=== PATIENT | male | born 1950 | race Caucasian/White ===

== ENCOUNTER 2017-04-06 19:30 | Outpatient (CLI) | payer MEDICARE, OTHER | END 2017-04-06 19:31 | disposition home or self-care (01) | LOC: SLEEPLAB 19:30 | PROVIDERS: ATTEND Internal Medicine Cardiovascular Disease | DX: G47.33 Obstructive sleep apnea (adult) (pediatric) (principal); R53.83 Other fatigue; R06.83 Snoring; E66.9 Obesity, unspecified; I10 Essential (primary) hypertension | CPT/HCPCS: 95811 ==

== ENCOUNTER 2017-04-25 12:30 | Emergency (ER) | payer MEDICARE, OTHER ==
[2017-04-25 12:59] LABS: #Basophils 0.1 thou/uL (0.0-0.2); #Eosinphils 0.2 thou/uL (0.0-0.7); #Lymphocytes 3.3 thou/uL (1.20-3.40); #Monocytes 0.8 thou/uL (0.11-0.59); #Neutrophils 4.8 thou/uL (1.40-6.50); %Basophils 1.6 % (0.0-1.0); %Eosinophils 2.5 % (0.0-10.0); %Lymphocytes 35.1 % (21.0-51.0); %Monocytes 8.7 % (0.0-10.0); Hematocrit 51.9 % (42.0-52.0); Red Blood Cell (RBC) Count 5.17 mill/uL (4.70-6.10); White Blood Cell (WBC) Count 9.2 thou/uL (4.8-10.8)
[2017-04-25 13:05] LABS: PTT 32.2 SEC (22.9-36.1); Prothrombin Time 15.1 SEC (12.0-14.7)
[2017-04-25 13:22] LABS: ALT (SGPT) 15 U/L (8-55); AST (SGOT) 18 U/L (5-34); Alkaline Phosphatase 72 U/L (40-150); Anion Gap 12 mmol/L (10-20); BUN (Urea Nitrogen) 19 mg/dL (8.4-25.7); Bilirubin, Total 0.5 mg/dL (0.2-1.2); CK (CPK) 62 U/L (30-200); Calc. Creatinine Clearance 0 mL/min (70-130); Calcium 9.4 mg/dL (7.8-10.44); Carbon Dioxide 25 mmol/L (23-31); Chloride 106 mmol/L (98-107); Estimated GFR-MDRD 77; Globulin 3.7 g/dL (2.4-3.5); Protein, Total 7.2 g/dL (5.8-8.1)
[2017-04-25 13:32] LABS: Troponin I 0.017 ng/mL (< 0.028)
--- NOTE | 2017-04-25 14:09 | ULT ---
ULTRASOUND VENOUS BILATERAL: Date: 04/25/17 HISTORY: Pain. COMPARISON: 04/10/15. FINDINGS: Real-time Chung scale and color Doppler with spectral analysis of the bilateral lower extremity venous system was performed. Bilateral common femoral, femoral, proximal portions of greater saphenous and deep femoral veins, as well as the popliteal and posterior tibial veins are interrogated. Normal flow, augmentation, and compression. No deep venous thrombosis. IMPRESSION: No deep venous thrombosis. POS: [facility]
== END 2017-04-25 16:24 | disposition home or self-care (01) ==
LOC: ERS 12:30
DX: I48.91 Unspecified atrial fibrillation (principal); E78.5 Hyperlipidemia, unspecified; I10 Essential (primary) hypertension; F17.210 Nicotine dependence, cigarettes, uncomplicated
CPT/HCPCS: 80053; 82553; 83880; 84484; 85025; 85610; 85730; 93005; 93970; 94760; 96360

== ENCOUNTER 2017-06-15 09:28 | Outpatient (CLI) | payer MEDICARE ==
--- NOTE | 2017-06-15 12:17 | CT ---
CT PULMONARY LUNG SCAN NONCONTRAST: DATE: 06/15/17. HISTORY: Screening. Tobacco abuse. FINDINGS: Lungs are hyperinflated with scattered mild emphysematous changes evident. At the lateral aspect of the right upper lobe, a 0.6 cm nodule is associated with an area of thickened interstitium. Within t he anterior aspect of the right upper lobe, a 0.3 cm subpleural nodule is evident. Old healed rib fractures are demonstrated. There is calcification in the arterial structures. Degen erative changes involve the thoracic spine. IMPRESSION: 1. Tiny subpleural right upper lobe nodules as detailed above. 2. Lung RADS category 3. Probably benign. Please consider 6-month followup low-dose CT to evaluate for stability. 3. Atherosclerosis. POS: [facility]
== END 2017-06-15 09:29 | disposition home or self-care (01) ==
LOC: CT 09:28
PROVIDERS: ATTEND Family Medicine
DX: Z12.2 Encounter for screening for malignant neoplasm of respiratory organs (principal); Z00.00 Encounter for general adult medical examination without abnormal findings; F17.210 Nicotine dependence, cigarettes, uncomplicated; I70.90 Unspecified atherosclerosis; R91.8 Other nonspecific abnormal finding of lung field; Z72.0 Tobacco use
CPT/HCPCS: G0297

== ENCOUNTER 2018-02-22 06:57 | Day surgery (SDC) | payer MEDICARE ==
[2018-02-21 12:14] VITALS: BMI 34.2
[2018-02-22 07:58] LABS: Hemoglobin 15.3 g/dL (14.0-18.0)
[2018-02-22 08:05] LABS: PTT 26.3 SEC (22.9-36.1)
[2018-02-22 08:06] LABS: Prothrombin Time 12.9 SEC (12.0-14.7)
[2018-02-22 08:18] LABS: Anion Gap 12 mmol/L (10-20); BUN (Urea Nitrogen) 25 mg/dL (8.4-25.7); Calc. Creatinine Clearance 119 mL/min (70-130); Calcium 9.2 mg/dL (7.8-10.44); Carbon Dioxide 23 mmol/L (23-31); Chloride 108 mmol/L (98-107); Estimated GFR-MDRD 77; Glucose 123 mg/dL (80-115); Sodium 139 mmol/L (136-145)
[2018-02-22] MEDS ORDERED: EPINEPHrine 1 MG/ML AMP ONE (08:51)
[2018-02-22] MEDS ORDERED: Fentanyl 100 MCG/2 ML VIAL ONE (08:55)
[2018-02-22] MEDS ORDERED: Famotidine/PF 20 mg/2ml Vial ONE (08:55)
[2018-02-22] MEDS ORDERED: PROPOFOL 40 ML ONE (08:55)
[2018-02-22] MEDS ORDERED: Midazolam HCl 2 mg/2 ml Vial ONE (08:55)
[2018-02-22] MEDS ORDERED: Lidocaine 1% PF 5 ML VIAL ONE (09:54)
[2018-02-22] MEDS ORDERED: PROPOFOL 200 MG/20 ML VIAL ONE (09:54)
[2018-02-22] MEDS ORDERED: Succinylcholine Chloride 20 MG/ML 10 ml SYRINGE FS ONE (09:54)
[2018-02-22] MEDS ORDERED: Ondansetron HCl/PF 4 MG/2 ML Vial ONE (09:54)
[2018-02-22] MEDS ORDERED: Dexamethasone 20 MG/5 ML VIAL ONE (09:54)
--- NOTE | 2018-02-22 22:34 | OP ---
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 3. Dysphonia. 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 3. Dysphonia. PROCEDURES: Microsuspension direct laryngoscopy with biopsy. SURGEON: Jim Michael M.D. ESTIMATED BLOOD LOSS: Less than 5 mL COMPLICATIONS: None. ANESTHESIA: GETA with Ravin jet ventilation tube. PROCEDURE IN DETAIL: The patient was taken to the operating room and placed supine on the table. Hu nsaker jet ventilation tube was secured in the trachea by the Anesthesia staff. The head of bed was turned 90 degrees. A shoulder roll was placed. Following this, protective head gear was placed and a tooth guard was placed in the upper teeth. Following this, the Dedo laryngoscope was used to exami ne the oral cavity and oropharynx, which was noted to be within normal limits. The laryngeal structu res were then examined. The vallecula, epiglottis, postcricoid mucosa and piriform sinuses were with in normal limits. The patient was then placed in suspension, exposing the laryngeal inlet and the tr ue vocal cords. 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 Using t he microlaryngeal forceps, biopsies were taken of the interarytenoid area and left true vocal cord ar ea. Hemostasis was obtained using an ephedrine soaked pledget. The patient tolerated the procedure well and was taken out of suspension.
[2018-02-25 15:12] LABS: Fungus Stain Final report (.)
--- NOTE | 2018-02-26 17:11 | EKG ---
Test Reason : PREOP Blood Pressure : / mmHG Vent. Rate : 077 BPM Atrial Rate : 071 BPM P-R Int : 000 ms QRS Dur : 092 ms QT Int : 396 ms P-R-T Axes : 000 035 017 degrees QTc Int : 448 ms Atrial fibrillation with premature ventricular or aberrantly conducted complexes Low voltage QRS Cannot rule out Anterior infarct , age undetermined Abnormal ECG When compared with ECG of 25-APR-2017 12:50, No significant change was found Confirmed by SCOT YOST (2) on 02/26/2018 5:11:04 PM Referred By: DANNY Confirmed By:SCOT YOST
== END 2018-02-22 11:50 | disposition home or self-care (01) ==
LOC: SDC 06:57
PROVIDERS: ATTEND Otolaryngology Plastic Surgery within the Head & Neck
PROC: 0CBS8ZX Excision of Larynx, Via Natural or Artificial Opening Endoscopic, Diagnostic (ICD-10-PCS; principal; 2018-02-22)
DX: J37.0 Chronic laryngitis (principal); J38.3 Other diseases of vocal cords; I10 Essential (primary) hypertension; I48.91 Unspecified atrial fibrillation; I73.9 Peripheral vascular disease, unspecified; F17.220 Nicotine dependence, chewing tobacco, uncomplicated; Z79.82 Long term (current) use of aspirin; Z79.899 Other long term (current) drug therapy
CPT/HCPCS: 36415; 80048; 85014; 85018; 85610; 85730; 87070; 87076; 87077; 87102; 87186; 87205; 87206; 88305; 88312; 93005; 93010; J0171; J1100; J2001; J2250; J2405; J2704; J3010; S0028

== ENCOUNTER 2018-05-31 09:14 | Outpatient (CLI) | payer MEDICARE ==
--- NOTE | 2018-05-31 11:50 | CT ---
CT CHEST WITHOUT CONTRAST: Date: 05/31/18 HISTORY: R91.8 pulmonary nodules/lesions. Low dose screening. COMPARISON: CT pulmonary lung scan dated 06/15/17. FINDINGS: Lung screening specific (Lung-RADS): Unchanged 6.0 mm nodule with adjacent interstitial scarring, ax ial image 130, series 2. 3.0 mm nodule right middle lobe, axial image 172, series 2, is similar. Within the superior segment, right lower lobe, there is a new pulmonary nodule measuring just over 4. 0 mm, axial image 141 of series 2. No other new suspicious pulmonary nodule is present. Centrilobular emphysematous changes are similar. Potentially significant incidentals (Lung-RADS Category S): None. Other incidentals: Multiple old bilateral rib fractures. No suspicious osteolytic or osteoblastic le sions. Moderate coronary artery calcifications. IMPRESSION: 1. Lung-RADS 3: Probably benign. 4.0 mm nodule superior segment right lower lobe, axial image 141 o f series 2, is new. Recommend follow-up low dose CT in 6 months to evaluate for change. 2. The previously described nodule in the right upper lobe measuring 0.6 cm is unchanged. POS: [facility]
== END 2018-05-31 09:15 | disposition home or self-care (01) ==
LOC: CT 09:14
PROVIDERS: ATTEND Family Medicine
DX: F17.210 Nicotine dependence, cigarettes, uncomplicated (principal); R91.8 Other nonspecific abnormal finding of lung field; R91.1 Solitary pulmonary nodule
CPT/HCPCS: G0297

== ENCOUNTER 2018-08-25 09:35 | Outpatient (CLI) | payer MEDICARE ==
--- NOTE | 2018-08-25 12:38 | CT ---
CTA CHEST WITH AND WITHOUT CONTRAST: HISTORY: Mass. Abnormal stress test at the doctor's office. COMPARISON: None. TECHNIQUE: Multiple contiguous axial images were obtained in a CTA chest with and without contrast. Sagittal an d coronal 3D MIP reformats were performed. FINDINGS: The heart is normal in size without focal cardiac abnormality. Atherosclerotic calcifications are se en in the aorta and coronary arteries. No aneurysmal dilatation of the vessels is seen. No hilar or mediastinal lymphadenopathy is present. There is a small calcified granuloma in the left lower lobe. No other pulmonary nodules are seen. N o pneumothorax or pleural effusion is seen. There are multiple remote healed left rib fractures. Degenerative changes are seen in the spine. Th e chest wall soft tissues are unremarkable. The visualized subdiaphragmatic structures are unremarkable. IMPRESSION: No pulmonary or chest mass identified. POS: [facility]
[2018-08-25] MEDS ORDERED: ISOVUE-370 76%-LOCM 1 ML ONE (13:38)
== END 2018-08-25 09:36 | disposition home or self-care (01) ==
LOC: BICCT 09:35
PROVIDERS: ATTEND Internal Medicine Cardiovascular Disease
DX: R22.2 Localized swelling, mass and lump, trunk (principal)
CPT/HCPCS: 71275; 82565; Q9966

== ENCOUNTER 2018-09-08 05:42 | Day surgery (SDC) | payer MEDICARE ==
[2018-09-07 13:04] VITALS: BMI 35.1
[2018-09-08 06:37] LABS: #Basophils 0.1 thou/uL (0.0-0.2); #Eosinphils 0.3 thou/uL (0.0-0.7); #Lymphocytes 3.8 thou/uL (1.20-3.40); #Monocytes 1.2 thou/uL (0.11-0.59); %Basophils 0.7 % (0.0-1.0); %Eosinophils 2.7 % (0.0-10.0); %Lymphocytes 33.5 % (21.0-51.0); %Monocytes 10.7 % (0.0-10.0); %Neutrophils 52.3 % (42.0-75.0); Hemoglobin 14.9 g/dL (14.0-18.0); Mean Corpuscular HGB CONC 35.1 g/dL (32.0-36.0); Mean Corpuscular Hemoglobin 32.6 pg (27.0-31.0); Mean Corpuscular Volume 92.9 fL (78.0-98.0); Mean Platelet Volume 8.5 fL (7.4-10.4); Platelet Count 217 thou/uL (130-400); RBC Distribution Width 12.1 % (11.5-14.5); Red Blood Cell (RBC) Count 4.58 mill/uL (4.70-6.10); White Blood Cell (WBC) Count 11.4 thou/uL (4.8-10.8)
[2018-09-08] MEDS ORDERED: Heparin 10,000 UNITS/1 ML VIAL ONE (06:43)
[2018-09-08] MEDS ORDERED: Nitroglycerin 100MG/250ML BOT 250 ML ONE (06:43)
[2018-09-08] MEDS ORDERED: Verapamil 5 MG/2 ML VIAL ONE (06:43)
[2018-09-08 06:47] LABS: PTT 26.7 SEC (22.9-36.1); Prothrombin Time 13.1 SEC (12.0-14.7)
[2018-09-08] MEDS ORDERED: Diazepam 5 MG TAB ONE (06:48)
[2018-09-08 06:57] LABS: ALT (SGPT) 17 U/L (8-55); AST (SGOT) 15 U/L (5-34); Albumin 3.8 g/dL (3.4-4.8); Alkaline Phosphatase 91 U/L (40-150); Anion Gap 13 mmol/L (10-20); BUN (Urea Nitrogen) 24 mg/dL (8.4-25.7); Bilirubin, Total 0.3 mg/dL (0.2-1.2); Calc. Creatinine Clearance 98 mL/min (70-130); Calcium 9.8 mg/dL (7.8-10.44); Carbon Dioxide 24 mmol/L (23-31); Chloride 104 mmol/L (98-107); Estimated GFR-MDRD 60; Globulin 3.4 g/dL (2.4-3.5); Glucose 138 mg/dL (80-115); Potassium 4.2 mmol/L (3.5-5.1); Protein, Total 7.2 g/dL (5.8-8.1); Sodium 137 mmol/L (136-145)
[2018-09-08] MEDS ORDERED: Midazolam HCl 2 mg/2 ml Vial ONE (07:30)
[2018-09-08] MEDS ORDERED: Fentanyl 100 MCG/2 ML VIAL ONE (07:30)
[2018-09-08] MEDS ORDERED: Iopamidol 370 76% 100 ML VIAL ONE (09:17)
== END 2018-09-08 14:04 | disposition home or self-care (01) ==
LOC: CCL 05:42
PROVIDERS: ATTEND Internal Medicine Cardiovascular Disease
PROC: 4A023N7 Measurement of Cardiac Sampling and Pressure, Left Heart, Percutaneous Approach (ICD-10-PCS; principal; 2018-09-08)
PROC: B2111ZZ Fluoroscopy of Multiple Coronary Arteries using Low Osmolar Contrast (ICD-10-PCS; 2018-09-08)
DX: I25.10 Atherosclerotic heart disease of native coronary artery without angina pectoris (principal); I48.2 Chronic atrial fibrillation; I73.9 Peripheral vascular disease, unspecified; E78.00 Pure hypercholesterolemia, unspecified; M19.90 Unspecified osteoarthritis, unspecified site; Z87.891 Personal history of nicotine dependence; Z79.01 Long term (current) use of anticoagulants; Z79.899 Other long term (current) drug therapy; Z79.82 Long term (current) use of aspirin; Z98.890 Other specified postprocedural states
CPT/HCPCS: 76942; 80053; 85025; 85610; 85730; 93458; 99152; C1769; J1644; J2250; J3010

== ENCOUNTER 2018-09-10 12:45 | Inpatient (IN) | payer MEDICARE ==
[2018-09-10 14:21] LABS: #Eosinphils 0.1 thou/uL (0.0-0.7); #Monocytes 1.3 thou/uL (0.11-0.59); #Neutrophils 11.3 thou/uL (1.40-6.50); %Basophils 0.2 % (0.0-1.0); %Eosinophils 0.6 % (0.0-10.0); %Lymphocytes 13.6 % (21.0-51.0); %Monocytes 8.8 % (0.0-10.0); %Neutrophils 76.8 % (42.0-75.0); Hemoglobin 15.1 g/dL (14.0-18.0); Mean Corpuscular HGB CONC 33.9 g/dL (32.0-36.0); Mean Corpuscular Hemoglobin 32.5 pg (27.0-31.0); Mean Corpuscular Volume 95.9 fL (78.0-98.0); Mean Platelet Volume 8.7 fL (7.4-10.4); Platelet Count 218 thou/uL (130-400); RBC Distribution Width 12.3 % (11.5-14.5); Red Blood Cell (RBC) Count 4.65 mill/uL (4.70-6.10); White Blood Cell (WBC) Count 14.8 thou/uL (4.8-10.8)
[2018-09-10 14:32] LABS: ALT (SGPT) 18 U/L (8-55); AST (SGOT) 13 U/L (5-34); Alkaline Phosphatase 101 U/L (40-150); Anion Gap 14 mmol/L (10-20); BUN (Urea Nitrogen) 19 mg/dL (8.4-25.7); Bilirubin, Total 0.3 mg/dL (0.2-1.2); Calc. Creatinine Clearance 0 mL/min (70-130); Calcium 9.6 mg/dL (7.8-10.44); Carbon Dioxide 26 mmol/L (23-31); Chloride 100 mmol/L (98-107); Estimated GFR-MDRD 65; Globulin 2.9 g/dL (2.4-3.5); Glucose 230 mg/dL (80-115); Potassium 4.4 mmol/L (3.5-5.1); Protein, Total 6.9 g/dL (5.8-8.1); Sodium 136 mmol/L (136-145)
[2018-09-10] MEDS ORDERED: diphenhydrAMINE 50 MG/ML VIAL ONE (14:38)
[2018-09-10] MEDS ORDERED: Metoclopramide HCl 10 MG/2 ML VIAL ONE (14:38)
--- NOTE | 2018-09-10 14:43 | CT ---
FCT brain noncontrast: 09/10/2018 HISTORY: 68-year-old male with headache FINDINGS: There is a small lacunar infarction involving the right caudate nucleus and adjacent upper portion of right basal ganglia. This was not present on MRI of 03/25/2014. A small, 1 cm hypodensity inferior to the left basal ganglia is consistent with a dilated Virchow-Brian in space, and should not be mistaken for an old lacunar infarction. Ventricles are normal in size and configuration for age. No acute intra-axial or extra-axial hemorrha ge. No mass effect, midline shift, or extra-axial fluid collection. Calvarium is intact. IMPRESSION: 1. Small lacunar infarction of right corpus striatum of indeterminate age. This could be subacute or old. It occurred sometime after the previous MRI of 03/25/2014. 2. No acute intracranial hemorrhage or mass effect..
[2018-09-10] MEDS ORDERED: Methocarbamol 1 GM in Sodium Chloride 0.9% 250 ML 250 ML IVPB SCH (14:45)
--- NOTE | 2018-09-10 14:48 | CT ---
FCT cervical spine noncontrast: 09/10/2018 HISTORY: 68-year-old male with cervical immobility. COMPARISON: None FINDINGS: Alignment is normal. Vertebral body heights are maintained. There are no jumped or perched facets. Mi ld disc space narrowing at C5-6. Moderate disc space narrowing at C6-7. Large bulky osteophytes protr ude into the prevertebral space at C5-6 and C6-7. Moderate right facet DJD at C7-T1 causes minimal gr celia 1 anterolisthesis of C7 on T1, causing moderate right neural foraminal stenosis. Cervical spinal canal is diffusely small in caliber on a congenital basis due to developmentally short pedicles. Nani re right facet DJD at C3-4. Moderate left facet DJD at C4-5. Uncinate process osteophytes encroach up on bilateral neural foramina causing multilevel neural foraminal stenosis of varying degrees. Large b nic hypertrophy of posterior lateral aspect of left first rib, perhaps old healed fracture deformity. IMPRESSION: Cervical spondylosis with facet osteoarthrosis at certain levels and moderate degenerative disc disea se at 2 levels. Multilevel neural foraminal stenosis and central spinal canal stenosis.
[2018-09-10] MEDS ORDERED: Ondansetron PF 4 MG/2 ML Vial ONE (16:05)
[2018-09-10] MEDS ORDERED: Morphine 2 MG/ML SYRINGE ONE ×2 (16:07→23:51)
[2018-09-10] MEDS ORDERED: Lidocaine 1% (PF) 30 ML VIAL ONE (16:52)
[2018-09-10] MEDS ORDERED: cefTRIAXone\\ROCEPHIN 2 GM VIAL ONE (17:07)
[2018-09-10 17:59] LABS: CSF Source CSF; Clarity Clear (Clear); Tube # 4
[2018-09-10 18:04] LABS: RBC Count - Manual 0 /cumm (None Seen); WBC/NonHematics Count - Manual 11 /cumm (0-5)
[2018-09-10 18:05] LABS: Color Of CSF Supernatant COLORLESS (Colorless); Tube # 2; Unspun CSF Color COLORLESS (Colorless)
[2018-09-10 18:08] LABS: CSF Source CSF; Clarity Clear (Clear); Tube # 1
[2018-09-10 18:14] LABS: RBC Count - Manual 22 /cumm (None Seen); WBC/NonHematics Count - Manual 7 /cumm (0-5)
[2018-09-10 18:18] LABS: CSF, Glucose 92 mg/dl (40-70); CSF, Protein 80 mg/dL (15-40)
[2018-09-10 18:31] LABS: Cell Count Non Hematic 91 %; Lymphocytes 9 %
[2018-09-10] MEDS ORDERED: Acetaminophen 325 MG TAB PO PRN (19:59)
[2018-09-10] MEDS ORDERED: HYDROcodone/Acetaminophen 5/325 mg Tablet PO PRN ×2 (19:59)
--- NOTE | 2018-09-10 21:00 | HP ---
CHIEF COMPLAINT: Headache. HISTORY OF PRESENT ILLNESS: This is a 68-year-old male with history of atrial fibrillation, dyslipidemia, hypertension, peripheral arterial disease, GERD, BPH , neuropathy, who presents to the emergency room with a complaint of headache. The patient and his daughter report that he had a catheterization [address] Arnett that was normal. That night, he started having stiffness in his neck and shoulders, creating a sharp shooting headache in the frontal area that has been intermittent. He has had neck pain since then. They attributed it to the catheterization; however, this continued to worsen to the point where he presented for care today. He denies any fevers or chills. Denies any nausea, vomiting, or abdominal pain. He also denies any history of chronic neck or back pain. He has noted that his voice changed 2 days ago, he has had some sinus pain and stuffy nose. He has ongoing chronic photophobia since cataract surgery years ago, that is unchanged. There have been no clear precipitating factors or relieving factors for these current symptoms. In the emergency room, the patient's presentation was concerning for meningitis. He had a temperature of 100.2 rectal, lumbar puncture that showed 7 white blood cells in tube 1, 11 white blood cells in tube 4. He received normal saline 1 L, Benadryl 25 mg IV, Reglan 10 mg IV, Robaxin 1 g IV, Zofran 4 mg IV, morphine 2 mg IV, ceftriaxone 2 g IV, vancomycin 1 g IV, and hospitalist called for admission. ALLERGIES: NO KNOWN DRUG ALLERGIES. CURRENT MEDICATIONS: Reconciled with the list that the patient provided: 1. Digoxin 0.125 mg daily. 2. Allopurinol 300 mg daily. 3. Diltiazem 360 mg daily. 4. Vitamin B12 daily. 5. Coenzyme Q10 daily. 6. Pantoprazole 40 mg daily. 7. Mobic 15 mg daily. 8. Eliquis 5 mg b.i.d. 9. Rosuvastatin 10 mg daily. 10. Gabapentin 300 mg two tablets at night. 11. Aspirin 81 mg at night. 12. Multivitamin at night. 13. Tamsulosin 0.5 mg at night. PAST MEDICAL HISTORY: 1. Atrial fibrillation, on full anticoagulation. 2. Dyslipidemia. 3. Hypertension. 4. Neuropathy. 5. GERD. 6. BPH. 7. Peripheral arterial disease, status post angioplasty in bilateral lower extremities. 8. History of ruptured lumbar disk. He denies any problems with this now. 9. Chronic photophobia s/p cataract surgery. 10. Chronic left knee pain. PAST SURGICAL HISTORY: Angioplasty in bilateral lower extremities and cataracts OU. SOCIAL HISTORY: The patient reports alcohol use monthly, quit tobacco use on . Lives with one of his daughters. He has 3 daughters who were all his surrogate decision makers and he is a full code. FAMILY HISTORY: He denies any inherited disorders. REVIEW OF SYSTEMS: Significant for voice change two days ago. Sinus pain, photophobia that is chronic. Left knee pain, he is anticipating knee replacement. Leg pain with ambulating about 50 feet. All remaining review of systems are reviewed and negative. PHYSICAL EXAMINATION: VITAL SIGNS: Blood pressure 130/85, pulse 94, respirations 24, sats 93% on room air, temperature 98.4. GENERAL: Awake, alert, responsive, in no apparent distress. Able to answer questions appropriately. HEENT: Pupils are equal and round. No scleral icterus. Oral mucosa pink and dry. NECK: Supple. Tenderness to palpation along the sternocleidomastoid, paracervical muscles, and the trapezius muscles without palpable defects. LYMPH: No palpable anterior cervical lymphadenopathy. LUNGS: Clear to auscultation bilateral with good air movement. HEART: Normal S1, S2. Irregular. No audible murmurs. ABDOMEN: Soft. Present bowel sounds. Nontender, nondistended. EXTREMITIES: No pitting edema, clubbing, or cyanosis. SKIN: The patient has some palpable subcutaneous nodules along his neck without tenderness to palpation, no visible rashes. NEUROLOGIC: No focal deficits. Moves arms and legs equally. PSYCH: Euthymic, alert, and oriented x4. VASCULAR: 2+ dorsalis pedis pulses. PSYCH: Alert & oriented x 4. LABORATORY DATA: Reviewed. CBC: 14.8, 15.1, 44.5, 218. Chemistry; 136, 4.4, 100, 26, 19, 1.12, 230. LFTs negative. Troponin negative. CSF tube 1, 7 white blood cells, 22 red blood cells; tube 2, glucose 92, protein 80; tube 4, 11 white blood cells, 0 red blood cells. Flu testing positive for influenza type A and CSF culture is pending. Blood cultures are pending. EKG, personally reviewed, atrial fibrillation with a rate of 108, no ST changes. CT of the C-spine shows cervical spondylosis with facet osteoarthrosis and moderate degenerative disk disease at two levels, multilevel neuroforaminal stenosis and central spinal canal stenosis. Brain CT shows a small lacunar infarction of the right corpus striatum of indeterminate age, which may be subacute or old, no acute process. IMPRESSION: 1. Sepsis secondary to influenza, with very mild white blood cell elevation in the CSF. 2. Headache, neck pain, which may be secondary to above and/or degenerative changes of the C-spine. 3. Atrial fibrillation, on full anticoagulation and appears rate controlled. 4. Hypertension. 5. History of stroke based on CT scan today. 6. Peripheral vascular disease with history of angioplasty, and persistent claudication symptoms. 7. Neuropathy. 8. Gastroesophageal reflux disease. 9. BPH. 10. Left knee pain, chronic. 11. Dyslipidemia. PLAN: 1. Admission to the hospital. 2. Telemetry monitoring. 3. We will continue IV fluids as the patient does appear dry. 4. Tamiflu for 10 doses. The first dose received in the emergency room. 5. We will cover with vancomycin and Rocephin with a plan for 24 hours. Will request Pharmacy assistance with dosing vancomycin. If cultures are negative, anticipate this can be discontinued. 6. Managing the pain with both oral and IV options. 7. Continuing his home medications to include full anticoagulation, calcium channel blu for rate control. 8. Monitor blood and CSF cultures. 9. Anticipated length of stay is greater than 48 hours for management of symptoms and monitoring for complications. 10. We will try a lidocaine patch for topical pain relief of the neck pain. 11. DVT prophylaxis. He is on full anticoagulation with Lovenox. 12. GI prophylaxis, not indicated. He is on a PPI. We will continue that. 13. Code status is full. Surrogate decision makers are his daughters. 14. The patient is at high risk given age comorbidities and current presentation. Job ID: [id number] [facility]
[2018-09-10] MEDS ORDERED: Aspirin Chewable 81 MG TAB ONE (23:37)
[2018-09-11] MEDS: Apixaban 5 MG TAB PO SCH ×3 (00:01→21:00)
[2018-09-11] MEDS: Gabapentin 300 MG CAP PO SCH ×2 (00:02→21:01)
[2018-09-11] MEDS: Lidocaine 5% Patch TD SCH ×2 (00:02→21:01)
[2018-09-11] MEDS: Aspirin 81 mg Enteric Coated Tablet PO SCH ×2 (00:02→21:01)
[2018-09-11] MEDS: Rosuvastatin 10 MG TAB PO SCH ×2 (00:03→21:01)
[2018-09-11] MEDS: Tamsulosin HCl 0.4 MG CAP PO SCH ×2 (00:03→21:02)
[2018-09-11] MEDS: Morphine 4 MG/ML VIAL SLOW IVP PRN ×3 (00:04→17:18)
[2018-09-11 04:06] LABS: #Basophils 0.1 thou/uL (0.0-0.2); #Eosinphils 0.1 thou/uL (0.0-0.7); #Lymphocytes 2.4 thou/uL (1.20-3.40); #Monocytes 1.6 thou/uL (0.11-0.59); #Neutrophils 7.8 thou/uL (1.40-6.50); %Basophils 0.6 % (0.0-1.0); %Eosinophils 0.6 % (0.0-10.0); %Lymphocytes 19.8 % (21.0-51.0); %Monocytes 13.6 % (0.0-10.0); %Neutrophils 65.3 % (42.0-75.0); Hemoglobin 13.8 g/dL (14.0-18.0); Mean Corpuscular HGB CONC 32.7 g/dL (32.0-36.0); Mean Corpuscular Hemoglobin 31.7 pg (27.0-31.0); Mean Corpuscular Volume 96.8 fL (78.0-98.0); Mean Platelet Volume 8.5 fL (7.4-10.4); Platelet Count 185 thou/uL (130-400); RBC Distribution Width 12.5 % (11.5-14.5); Red Blood Cell (RBC) Count 4.37 mill/uL (4.70-6.10); White Blood Cell (WBC) Count 11.9 thou/uL (4.8-10.8)
[2018-09-11 04:24] LABS: Anion Gap 11 mmol/L (10-20); BUN (Urea Nitrogen) 17 mg/dL (8.4-25.7); Calc. Creatinine Clearance 0 mL/min (70-130); Calcium 9.2 mg/dL (7.8-10.44); Carbon Dioxide 28 mmol/L (23-31); Chloride 101 mmol/L (98-107); Estimated GFR-MDRD 66; Glucose 168 mg/dL (80-115); Potassium 4.1 mmol/L (3.5-5.1); Sodium 136 mmol/L (136-145)
[2018-09-11] MEDS: cefTRIAXone\\ROCEPHIN 2 GM in Sodium Chloride 0.9% 100 ML IVPB SCH ×2 (05:30→17:19)
[2018-09-11] MEDS ORDERED: cefTRIAXone\\ROCEPHIN 2 GM VIAL ONE (05:32)
[2018-09-11] MEDS: Vancomycin HCl 1.5 GM in Sodium Chloride 0.9% 250 ML 300 ML IVPB SCH ×2 (06:05→18:16)
[2018-09-11] MEDS ORDERED: Digoxin 0.125 MG TAB PO SCH (09:00)
[2018-09-11] MEDS: Digoxin 0.5 MG/2 ML AMP SLOW IVP SCH (10:15)
[2018-09-11] MEDS: Oseltamivir 75 MG CAP PO SCH ×3 (10:16→21:01)
[2018-09-11] MEDS: Allopurinol 300 MG TAB PO SCH (10:16)
[2018-09-11] MEDS: Meloxicam 15 MG TAB PO SCH (10:17)
[2018-09-11] MEDS ORDERED: Morphine 4 MG/ML VIAL ONE (11:13)
[2018-09-11] MEDS: Sodium Chloride 0.9% 1,000 ML IV SCH ×3 (11:21→21:02)
[2018-09-11 12:57] VITALS: BMI 34.8
[2018-09-11] MEDS ORDERED: Ketorolac Tromethamine 30 MG/ML VIAL IVP SCH (15:00)
[2018-09-12] MEDS: cefTRIAXone\\ROCEPHIN 2 GM in Sodium Chloride 0.9% 100 ML IVPB SCH (04:54)
[2018-09-12] MEDS: Vancomycin HCl 1.5 GM in Sodium Chloride 0.9% 250 ML 300 ML IVPB SCH (05:47)
[2018-09-12 06:20] LABS: #Basophils 0.1 thou/uL (0.0-0.2); #Eosinphils 0.2 thou/uL (0.0-0.7); #Lymphocytes 2.6 thou/uL (1.20-3.40); #Monocytes 1.4 thou/uL (0.11-0.59); #Neutrophils 6.5 thou/uL (1.40-6.50); %Basophils 0.6 % (0.0-1.0); %Lymphocytes 24.5 % (21.0-51.0); %Monocytes 12.8 % (0.0-10.0); %Neutrophils 60.2 % (42.0-75.0); Mean Corpuscular HGB CONC 33.2 g/dL (32.0-36.0); Mean Corpuscular Hemoglobin 32.3 pg (27.0-31.0); Mean Corpuscular Volume 97.2 fL (78.0-98.0); Mean Platelet Volume 8.2 fL (7.4-10.4); Platelet Count 189 thou/uL (130-400); RBC Distribution Width 12.3 % (11.5-14.5); Red Blood Cell (RBC) Count 4.04 mill/uL (4.70-6.10); White Blood Cell (WBC) Count 10.8 thou/uL (4.8-10.8)
--- NOTE | 2018-09-12 07:56 | PRG ---
DATE OF SERVICE: 09/11/2018 SUBJECTIVE: The patient was seen at the bedside. He complains about the neck pain and the left knee pain. Headache is gone. OBJECTIVE: VITAL SIGNS: Blood pressure is 127/60, temperature is 98.4, pulse 91, respiratory rate is 20, and O2 saturation is 100% on room air. HEENT: His head is atraumatic and normocephalic. Pupils are responding to light properly. Sclerae are nonicteric. Oral mucosa tender to palpation and range of motion is significantly diminished secondary to the pain. LUNGS: Clear. HEART: S1 and S2, normal. No S3. No S4. ABDOMEN: Soft, nontender, and nondistended. EXTREMITIES: No clubbing, cyanosis, or edema. Left knee is severely osteoarthritic with bony overgrowth. NEUROLOGIC: He is alert and oriented x4. There is no motor or sensory deficit present. Cranial nerves are intact. LABORATORY DATA: White count of 11.9, hemoglobin 13.8, hematocrit 42.3, and platelet count 185,000. Normal electrolytes. Normal creatinine. Glucose 168. Microbiology, no new findings. IMPRESSION: 1. Influenza A. 2. Headache and neck pain, to rule out meningitis. Currently on vancomycin and Rocephin; awaiting for the spinal fluid cultures to come back. If negative, we will stop both of them. 3. Atrial fibrillation, on full anticoagulation, rate controlled. 4. Hypertension. 5. Neck pain, most likely osteoarthritic changes in the neck. 6. Left knee pain. The patient states that he is scheduled in the future for the left knee replacement because it is [id number] and he is aware of that. 7. History of stroke based on CT scan done in the emergency room. 8. Peripheral vascular disease with history of angioplasty and persistent claudication symptoms. 9. Neuropathy. 10. Gastroesophageal reflux disease. 11. BPH. 12. Dyslipidemia. PLAN: As mentioned above, we will continue both antibiotics for now until the cultures come back negative. We will give him Toradol 30 mg IV push x1 dose for his neck and left knee. The cervical spine CT was done in the emergency room and it showed cervical spondylosis with facet osteoarthrosis at certain levels and moderate degenerative disk disease at two levels along with multilevel neural foraminal stenosis and central spinal canal stenosis. We will observe this neck problem if needed. We will start him on some steroid therapy, but because of his current infection, we are going to avoid this at this point and keep him on current regimen. Job ID: [id number]
[2018-09-12] MEDS: Apixaban 5 MG TAB PO SCH ×2 (09:58→21:08)
[2018-09-12] MEDS: Allopurinol 300 MG TAB PO SCH (09:58)
[2018-09-12] MEDS: Meloxicam 15 MG TAB PO SCH (09:58)
[2018-09-12] MEDS: Oseltamivir 75 MG CAP PO SCH ×2 (09:58→21:09)
[2018-09-12] MEDS: Digoxin 0.5 MG/2 ML AMP SLOW IVP SCH (09:59)
[2018-09-12] MEDS ORDERED: Oxymetazoline HCl 0.05% ( 15 ML ) NASAL SCH (12:15)
--- NOTE | 2018-09-12 12:35 | PRG ---
DATE OF SERVICE: 09/12/2018 SUBJECTIVE: The patient is seen and examined at the bedside. His neck pain improved significantly, but he still has quite a bit of pain in his left knee, and also, he complains about some stuffy nose. OBJECTIVE: VITAL SIGNS: Blood pressure is 139/86, pulse is 81, temperature is 97.4, respiratory rate is 20, O2 saturation is 93% on room air. HEENT: His head is atraumatic and normocephalic. Eyes are PERRLA. Sclerae are nonicteric. Oral mucosa is moist. NECK: Supple. LUNGS: Clear except for few rales at both bases. HEART: S1 and S2 are normal. No S3. No S4. ABDOMEN: Soft and nontender. Bowel sounds are present. No organomegaly. EXTREMITIES: Left knee is osteoarthritic, very painful on any range of motion attempt. NEUROLOGIC: He is able to move his all 4 extremities. There are no any motor deficits. LABORATORY DATA: White count of 10.8, hemoglobin 13.0, hematocrit 39.2, platelet count is 189. CSF culture, negative. IMPRESSION: 1. Influenza A. 2. Headache and neck pain. Bacterial meningitis was ruled out. We are going to stop vancomycin and Rocephin. CSF cultures came back negative. 3. Atrial fibrillation, on full anticoagulation, rate controlled. 4. Hypertension. 5. Neck pain and left knee pain, osteoarthritic changes. I gave him 1 dose of Toradol yesterday. He improved on his neck pain. He will have additional 2 doses today. 6. History of stroke based on the CT scan done in the emergency room. 7. Peripheral vascular disease with history of angioplasty and persistent claudication symptoms. 8. Neuropathy. 9. Gastroesophageal reflux disease. 10. BPH. 11. Dyslipidemia. PLAN: We are going to continue his Tamiflu. We will stop his both antibiotics. We will continue Toradol for 2 additional doses and try to give him some Afrin for nasal congestion. He has multiple levels of disk problem on his cervical spine, so he will have to follow up on this part with orthopedic surgeon after he is discharged from the hospital. He should be able to go home in the next probably 24 to 48 hours. Job ID: [id number]
[2018-09-12] MEDS: Ketorolac Tromethamine 30 MG/ML VIAL IVP SCH ×2 (13:33→18:00)
[2018-09-12] MEDS ORDERED: Oxymetazoline HCl 0.05% (30 ML BOT) NS SCH (13:45)
[2018-09-12] MEDS: Aspirin 81 mg Enteric Coated Tablet PO SCH (21:08)
[2018-09-12] MEDS: Gabapentin 300 MG CAP PO SCH (21:08)
[2018-09-12] MEDS: Tamsulosin HCl 0.4 MG CAP PO SCH (21:09)
[2018-09-12] MEDS: Rosuvastatin 10 MG TAB PO SCH (21:09)
[2018-09-12] MEDS: Lidocaine 5% Patch TD SCH (21:09)
[2018-09-13] MEDS ORDERED: Digoxin 0.125 MG TAB PO SCH (09:00)
[2018-09-13] MEDS: Meloxicam 15 MG TAB PO SCH (09:27)
[2018-09-13] MEDS: Apixaban 5 MG TAB PO SCH (09:28)
[2018-09-13] MEDS: Allopurinol 300 MG TAB PO SCH (09:28)
[2018-09-13] MEDS: Oseltamivir 75 MG CAP PO SCH (09:28)
[2018-09-13 12:20] VITALS: BP 119/59; TEMP 97.4
--- NOTE | 2018-09-13 14:15 | PQF ---
CLINICAL DOCUMENTATION IMPROVEMENT CLARIFICATION FORM: ICD-10 Updated PLEASE DO AN ADDENDUM TO THE PROGRESS NOTE WITH ANY DOCUMENTATION UPDATES OR ADDITIONS AND CARRY THROUGH TO DC SUMMARY. THANK YOU. DATE: 09/13/2018 ATTN: Dr. Eason Please exercise your independent, professional judgment in responding to the clarification form. Clinical indicators are provided on the bottom of this form for your review Please check appropriate box(s) to clarify if the following diagnosis has been ruled in or ruled out: Sepsis secondary to influenza [ ] Ruled in diagnosis [ ] Continue to treat [ ] Resolved [ x ] Ruled out diagnosis [ ] Cannot rule out diagnosis [ ] Other diagnosis [ ] Unable to determine In addition, please specify: Present on Admission (POA): [ ] Yes [ ] No [ x] Unable to determine For continuity of documentation, please document condition throughout progress notes and discharge summary. Thank You. CLINICAL INDICATORS - SIGNS / SYMPTOMS / LABS ER 09/10: BP 109/77 Pulse 120 Resp. 21 Temp 100.1 LAB 09/10: WBC 14.8 H&P 09/10: Flu testing positive for influenza type A Sepsis secondary to influenza, with very mild white blood cell elevation in the CSF PN 09/12: Influenza A Bacterial meningitis was ruled out. We are going to stop vancomycin and rocephin. CSF cultures came back negative. RISKS: H&P: 68 yo with hx of atrial fibrillation, HTN, PAD. The pt and his daughter report that he had a catheterization 2 days ago that was normal. TREATMENT: Order 09/10-09/12: NS 1,000 ml 75 mls/hr. Order 09/10-09/12: Rocephin 2 gm IV; Vancomycin HCL 1.5 gm IV Thank you, Leta (This form is maintained as a part of the permanent medical record) 2014 [employer]. All Rights Reserved Leta Rodriguez RN, [email or web address] Office: [phone] [facility]
--- NOTE | 2018-09-14 01:36 | DIS ---
DATE OF ADMISSION: 09/10/2018 DATE OF DISCHARGE: 09/13/2018 PRIMARY CARE PHYSICIAN: Dr. Babita Whipple. DISCHARGE DIAGNOSES: 1. Influenza A. 2. Chronic headache and neck pain, likely osteoarthritis. 3. Chronic paroxysmal atrial fibrillation, on anticoagulation. 4. Hypertension. 5. History of stroke. 6. Peripheral vascular disease. 7. Neuropathy. 8. Gastroesophageal reflux disease. 9. BPH. 10. Dyslipidemia. DISCHARGE MEDICATIONS: Resume home medications. No changes were made. New medications are Tamiflu 75 mg p.o. b.i.d. for six more doses and lidocaine patch one patch daily as needed. Full list of home medications, please see H and P dictated by Dr. Jeannie Kumari on 09/10/2018. Once again, no changes were made. IN-HOUSE CONSULTATION: None. PROCEDURES DONE IN THE HOSPITAL: 1. CT scan of the brain upon presentation, which shows small lacunar infarction of the right corpus striatum of indeterminate age, subacute or old without any hemorrhage. 2. CT scan of the cervical spine, which shows spondylolysis with facet osteoarthrosis of certain levels and moderate degenerative disk disease at two levels. Multilevel neuroforaminal stenosis and central spinal canal stenosis are also seen. 3. Lumbar puncture. HISTORY OF PRESENTING ILLNESS: Mr. Stone is a 68-year-old male with past medical history of chronic atrial fibrillation, hypertension, dyslipidemia, peripheral arterial disease, and osteoarthritis, who presented to the emergency room with complaints of headache. He recently had a cardiac catheterization done by Dr. Arnett as a preop evaluation for his upcoming knee arthroplasty. He however was found to have moderate disease and was recommended for medical management. Upon presentation to the emergency room, there was concern for meningitis as he had a temperature of 100.2. Lumbar puncture was done and he was started on empiric IV antibiotic. Please see admission history and physical dictated by Dr. Jeannie Kumari for full details. HOSPITAL COURSE: The patient's infectious workup turned out to be negative. He was found to have actually influenza type A positive infection. His lumbar fluid culture and blood culture remain negative. His lumbar fluid wbc count was 7, rbc's 22, glucose 92, and protein 80. His antibiotics were discontinued and he was continued on Tamiflu to finish the course of 5 days. As of this morning, he is back to his baseline. His pain is under control and he is eager to go home and keep up his followup appointment with Orthopedics. He reports that he has also seen Neurosurgery in the outpatient setting and at this time, he is not a surgical candidate. I have encouraged him to continue to follow up with regard to his chronic pain issues from osteoarthritis. He verbalized understanding. DISCHARGE PLAN: Discharge plan was discussed with the patient and his family and they verbalized understanding. He was seen and examined prior to discharge. PHYSICAL EXAMINATION: VITAL SIGNS: This morning, temperature 97.4, pulse 85, respirations 20, saturating 97% on room air, blood pressure 119/59. GENERAL: No acute distress. Awake, alert, oriented x3. CHEST: Clear to auscultation bilaterally. HEART: Rate and rhythm regular. NEUROLOGICAL: Nonfocal. FOLLOWUP: He is instructed to follow up with primary care physician in 1 to 2 weeks. DISCHARGE LABORATORY DATA: WBC 10.8, down from 14.8 upon presentation with 60% neutrophils, which is down from 76% upon presentation. Serum chemistries unremarkable. Cardiac enzymes normal range. TOTAL TIME SPENT: 32 minutes. Job ID: [id number]
--- NOTE | 2018-09-16 15:30 | EKG ---
Test Reason : Blood Pressure : / mmHG Vent. Rate : 108 BPM Atrial Rate : 113 BPM P-R Int : 000 ms QRS Dur : 088 ms QT Int : 326 ms P-R-T Axes : 000 027 -56 degrees QTc Int : 436 ms Atrial fibrillation with rapid ventricular response with premature ventricular or aberrantly conducte d complexes Low voltage QRS Confirmed by REBECCA CHOW ([id number]), editor in chief newspaper OCTAVIO URBINA ([id number]) on 09/16/2018 3:29:54 PM Referred By: Confirmed By:REBECCA CHOW
== END 2018-09-13 12:30 | disposition home or self-care (01) | DRG 195 ==
LOC: ERS 12:45 → 2NO 18:41 → ERHOLD 19:01 → 2NO 09-11 11:56
PROVIDERS: ADMIT Family Medicine; ATTEND Family Medicine
PROC: 009U3ZX Drainage of Spinal Canal, Percutaneous Approach, Diagnostic (ICD-10-PCS; principal; 2018-09-10)
DX: J10.1 Influenza due to other identified influenza virus with other respiratory manifestations (principal); E78.5 Hyperlipidemia, unspecified; G62.9 Polyneuropathy, unspecified; M19.90 Unspecified osteoarthritis, unspecified site; I10 Essential (primary) hypertension; I73.9 Peripheral vascular disease, unspecified; I48.2 Chronic atrial fibrillation; K21.9 Gastro-esophageal reflux disease without esophagitis; N40.0 Benign prostatic hyperplasia without lower urinary tract symptoms; Z79.01 Long term (current) use of anticoagulants; Z79.82 Long term (current) use of aspirin; Z79.899 Other long term (current) drug therapy; Z87.891 Personal history of nicotine dependence
CPT/HCPCS: 36415; 62270; 70450; 72125; 76942; 80048; 80053; 82945; 83605; 84157; 84484; 85025; 85060; 85610; 85730; 87040; 87070; 87205; 87804; 89051; 93005; 93458; 96365; 96366; 96367; 96375; 99152; C1769; J0696; J1160; J1200; J1644; J1885; J2001; J2250; J2270; J2405; J2765; J2800; J3010; J3370; J3490; J7050; Q9967

== ENCOUNTER 2019-04-02 08:50 | Observation (INO) | payer MEDICARE ==
[2019-04-02 10:01] LABS: #Basophils 0.1 thou/uL (0.0-0.2); #Eosinphils 0.4 thou/uL (0.0-0.7); #Lymphocytes 3.2 thou/uL (1.20-3.40); #Monocytes 0.9 thou/uL (0.11-0.59); #Neutrophils 4.3 thou/uL (1.40-6.50); %Basophils 0.8 % (0.0-1.0); %Eosinophils 4.5 % (0.0-10.0); %Lymphocytes 36.1 % (21.0-51.0); %Monocytes 10.5 % (0.0-10.0); %Neutrophils 48.1 % (42.0-75.0); Hemoglobin 14.6 g/dL (14.0-18.0); Mean Corpuscular HGB CONC 32.7 g/dL (32.0-36.0); Mean Corpuscular Hemoglobin 30.4 pg (27.0-31.0); Mean Corpuscular Volume 92.9 fL (78.0-98.0); Platelet Count 218 thou/uL (130-400); RBC Distribution Width 14.2 % (11.5-14.5); Red Blood Cell (RBC) Count 4.79 mill/uL (4.70-6.10); White Blood Cell (WBC) Count 8.9 thou/uL (4.8-10.8)
[2019-04-02 10:10] LABS: PTT 32.6 SEC (22.9-36.1)
[2019-04-02 10:16] LABS: Anion Gap 14 mmol/L (10-20); BUN (Urea Nitrogen) 20 mg/dL (8.4-25.7); Calc. Creatinine Clearance 104 mL/min (70-130); Calcium 9.3 mg/dL (7.8-10.44); Carbon Dioxide 24 mmol/L (23-31); Chloride 104 mmol/L (98-107); Estimated GFR-MDRD 67; Glucose 112 mg/dL (83-110); Potassium 4.6 mmol/L (3.5-5.1); Sodium 137 mmol/L (136-145)
[2019-04-02] MEDS ORDERED: Lidocaine 1% (PF) 30 ML VIAL ONE (11:25)
[2019-04-02] MEDS ORDERED: Fentanyl 100 MCG/2 ML VIAL ONE ×2 (11:25→15:48)
[2019-04-02] MEDS ORDERED: Ketamine 50 MG/ML (10ML VIAL) ONE (11:25)
[2019-04-02] MEDS ORDERED: Propofol 500 MG/50 ML VIAL ONE ×2 (11:25→13:22)
[2019-04-02] MEDS ORDERED: Midazolam HCl 2 mg/2 ml Vial ONE (11:25)
[2019-04-02] MEDS ORDERED: Iopamidol 370 76% 50 ML VIAL FS ONE (12:18)
[2019-04-02] MEDS ORDERED: Promethazine HCl 25 MG/ML VIAL SLOW IVP PRN (12:56)
[2019-04-02] MEDS ORDERED: Ondansetron HCl/PF 4 MG/2 ML Vial IVP PRN (12:56)
[2019-04-02] MEDS ORDERED: Promethazine HCl 25 MG/ML VIAL IM PRN (12:56)
[2019-04-02] MEDS ORDERED: DOPamine 400 MG/D5W 250 ML 250 ML ONE (14:53)
[2019-04-02] MEDS ORDERED: PROPOFOL 20 ML ONE (14:56)
--- NOTE | 2019-04-02 15:42 | RAD ---
XR Chest 1 View Portable History: Pacemaker placement Comparison: None. Findings: 3-lead pacer is in place with leads projecting over the right atrium, right ventricle, and coronary sinus. Heart size is enlarged. No pneumothorax. Impression: Uncomplicated pacemaker placement.
--- NOTE | 2019-04-02 15:48 | OP ---
DATE OF PROCEDURE: 04/02/2019 PROCEDURE PERFORMED: Electrophysiology study and radiofrequency ablation REASON FOR PROCEDURE: Mr. Stone is a 69-year-old male with prior history of atrial fibrillation with rapid rates. He is here for a Bi-V pacemaker implantation with His bundle pacing planned and AV kayleigh ablation. DESCRIPTION OF PROCEDURE: The patient received propofol by anesthesia specialist for deep sedation. With standard techniques, Bi-V pacing implantation was performed through the left subclavian access. We performed a right atrial, His bundle, and CS mapping to facilitate the His bundle lead placement. Please see separate report. Following that, access was obtained at the right femoral venous area after adequate prep and drape and anesthetizing with local lidocaine. Ultrasound was used to access the right femoral vein. An 8-American short sheath was introduced, through which a ThermoCoFireScope SFST catheter advanced to the right atrium. Again, the His bundle and the AV kayleigh artery were met. Radiofrequency ablation of the fast AV kayleigh and the slow AV kayleigh pathway were delivered, achieving complete AV block. A total number of lesions delivered were 3 with total duration of 3 minutes and 4 seconds. In the end of the case, ventricular pacing was seen as an escape rhythm. Suggestive of complete AV block. Dopamine was administered and no reconnection was seen. The sheaths and catheter were removed in the laboratory chemist. No complications noted. CONCLUSION: Successful atrioventricular kayleigh ablation. PLAN: 1. Programing routine pacemaker. 2. Continue chronic anticoagulation. Job ID: [id number]
--- NOTE | 2019-04-02 15:51 | EKG ---
Test Reason : PREOP Blood Pressure : / mmHG Vent. Rate : 083 BPM Atrial Rate : 104 BPM P-R Int : 000 ms QRS Dur : 088 ms QT Int : 372 ms P-R-T Axes : 000 040 -02 degrees QTc Int : 437 ms Atrial fibrillation Low voltage QRS Abnormal ECG Confirmed by MEI ZEPEDA ([id number]) on 04/02/2019 3:51:09 PM Referred By: RANDY Confirmed By:MEI ZEPEDA
[2019-04-02] MEDS ORDERED: PROPOFOL 200 MG/20 ML VIAL ONE (16:12)
[2019-04-02] MEDS ORDERED: PHENYLEPHRINE-NS 100 MCG/ML 10 ML SYRINGE ONE (16:12)
[2019-04-02] MEDS ORDERED: Meloxicam 15 MG TAB PO PRN (16:35)
[2019-04-02 18:03] VITALS: BMI 33.1
[2019-04-02] MEDS ORDERED: Rosuvastatin 10 MG TAB PO SCH (21:00)
[2019-04-02] MEDS ORDERED: Gabapentin 300 MG CAP PO SCH (21:00)
[2019-04-02] MEDS ORDERED: Tamsulosin HCl 0.4 MG CAP PO SCH (21:00)
[2019-04-02] MEDS: ceFAZolin 1 GM/D5W 1 GM in Premix Bag 1 BAG IVPB SCH (21:42)
[2019-04-02] MEDS: Varenicline Tartrate 0.5 MG TAB PO SCH (21:43)
[2019-04-03] MEDS: ceFAZolin 1 GM/D5W 1 GM in Premix Bag 1 BAG IVPB SCH (05:04)
[2019-04-03 08:34] VITALS: BP 121/63; TEMP 98.4
[2019-04-03] MEDS ORDERED: Multivit, Therapeutic 1 TAB PO SCH (09:00)
[2019-04-03] MEDS ORDERED: Ezetimibe 10 MG TAB PO SCH (09:00)
[2019-04-03] MEDS ORDERED: Cephalexin 250 MG CAP PO SCH (09:00)
[2019-04-03] MEDS ORDERED: Apixaban 5 MG TAB PO SCH (09:00)
[2019-04-03] MEDS ORDERED: Magnesium Oxide 250 MG TAB PO SCH (09:00)
[2019-04-03] MEDS ORDERED: Cyanocobalamin (Vitamin B-12) 1,000 MCG TAB PO SCH (09:00)
[2019-04-03] MEDS ORDERED: Gabapentin 300 MG CAP PO SCH (09:00)
[2019-04-03] MEDS ORDERED: Ubidecarenone 50 MG CAP PO SCH (09:00)
[2019-04-03] MEDS ORDERED: Allopurinol 300 MG TAB PO SCH (09:00)
[2019-04-03] MEDS: Varenicline Tartrate 0.5 MG TAB PO SCH (09:12)
--- NOTE | 2019-04-03 16:23 | EKG ---
Test Reason : Blood Pressure : / mmHG Vent. Rate : 072 BPM Atrial Rate : 083 BPM P-R Int : 000 ms QRS Dur : 148 ms QT Int : 396 ms P-R-T Axes : 000 060 238 degrees QTc Int : 433 ms Suspect unspecified pacemaker failure Ventricular-paced rhythm with occasional Premature ectopic complexes Abnormal ECG Confirmed by MEI ZEPEDA ([id number]) on 04/03/2019 4:22:41 PM Referred By: Confirmed By:MEI ZEPEDA
--- NOTE | 2019-04-03 16:31 | EKG ---
Test Reason : Blood Pressure : / mmHG Vent. Rate : 071 BPM Atrial Rate : 078 BPM P-R Int : 000 ms QRS Dur : 158 ms QT Int : 436 ms P-R-T Axes : 000 042 255 degrees QTc Int : 473 ms Electronic ventricular pacemaker When compared with ECG of 02-APR-2019 15:41, (Unconfirmed) Premature ventricular complexes are no longer Present Confirmed by MEI ZEPEDA ([id number]) on 04/03/2019 4:31:03 PM Referred By: RANDY Confirmed By:MEI ZEPEDA
--- NOTE | 2019-04-04 04:27 | DIS ---
DATE OF ADMISSION: 04/02/2019 DATE OF DISCHARGE: 04/03/2019 DIAGNOSES: Atrial fibrillation with rapid ventricular response, pacemaker implant, AV node ablation. HISTORY OF PRESENT ILLNESS: Mr. Stone is a 69-year-old gentleman with a history of chronic atrial fibrillation with [id number] RVR despite digoxin, diltiazem, and metoprolol. He has been extremely symptomatic with these medications and fatigued. We discussed atrial fibrillation management techniques and it was decided to move ahead with a His-bundle pacemaker implant and AV kayleigh ablation. He was admitted on the and was performed by Dr. Musa. He stayed in the hospital overnight for observation and his heart rates have been well controlled with no breakthrough tachycardic arrhythmias. His digoxin was stopped. He has had some hypertension, though we may not be able to remove all of his AV kayleigh blocking medications as they will also help manage his hypertension. He feels well today and is eager to get home. SUBJECTIVE: Patient denies any heart racing, palpitations, chest pain, pressure , syncope, near syncope, stroke, stroke-like symptoms, bleeding from the groin sites or bleeding from his pacemaker implant site. OBJECTIVE: VITAL SIGNS: 98.4 degrees Fahrenheit, pulse 70, blood pressure 121/ 63, respirations 16, and oxygen is 94% on room air. GENERAL: Patient is alert and oriented. Speech is clear. Affect is appropriate. NECK: Supple without jugular venous distention. LUNGS: Clear to auscultation. HEART: Rate is regular. Pacemaker implant site is along the left infraclavicular fossa. There is some mild swelling and minimal bruising. There is no drainage. Edges are well approximated with Dermabond securing superficially. ABDOMEN: Soft and nontender without palpable masses. EXTREMITIES: Warm, dry, and well perfused without clubbing, cyanosis, or edema. NEUROLOGIC: Grossly intact. Gait was not assessed. DISCHARGE MEDICATIONS: Home medications. 1. Resuming home medications of magnesium oxide daily. 2. Mobic as needed. 3. CoQ10 daily. 4. Tamsulosin at bedtime. 5. Rosuvastatin daily. 6. Allopurinol daily. 7. Eliquis 5 mg p.o. b.i.d. 8. Gabapentin 300 mg p.o. daily. 9. Chantix b.i.d. 10. Protonix daily. 11. Toprol-XL 25 mg daily. 12. Gabapentin daily. 13. daily. 14. B12 daily. 15. D3 daily. 16. Myrbetriq daily. 17. Multivitamin daily. Discontinued medications include; 1. Digoxin 125 mcg daily. 2. Diltiazem 360 mg daily. New prescription called in Keflex 500 mg p.o. q.i.d. x7 days. DISCHARGE INSTRUCTIONS: Wound check in 2 weeks. Do not lift left elbow over the level of shoulder for three weeks. No driving for 24 hours or until the groin site is well healed without any tenderness. No soaking baths. Showering is okay. Take antibiotics as prescribed. I will have him followup with Cardiology to manage diltiazem and metoprolol for blood pressure as these may be weaned from an EP perspective. CONDITION AT DISCHARGE: Stable. PROCEDURES PERFORMED: Include a BiV/His pacemaker, AV node ablation. Job ID: [id number] MTDD
== END 2019-04-03 10:47 | disposition home or self-care (01) ==
LOC: CCL 08:50 → 2SW 15:31
PROVIDERS: ADMIT Internal Medicine Cardiovascular Disease; ATTEND Internal Medicine Cardiovascular Disease
PROC: 02583ZZ Destruction of Conduction Mechanism, Percutaneous Approach (ICD-10-PCS; principal; 2019-04-02)
PROC: 02K83ZZ Map Conduction Mechanism, Percutaneous Approach (ICD-10-PCS; 2019-04-02)
PROC: 4A023FZ Measurement of Cardiac Rhythm, Percutaneous Approach (ICD-10-PCS; 2019-04-02)
PROC: 4A0234Z Measurement of Cardiac Electrical Activity, Percutaneous Approach (ICD-10-PCS; 2019-04-02)
PROC: 0JH607Z Insertion of Cardiac Resynchronization Pacemaker Pulse Generator into Chest Subcutaneous Tissue and Fascia, Open Approach (ICD-10-PCS; 2019-04-02)
PROC: 02H63JZ Insertion of Pacemaker Lead into Right Atrium, Percutaneous Approach (ICD-10-PCS; 2019-04-02)
PROC: 02HK3JZ Insertion of Pacemaker Lead into Right Ventricle, Percutaneous Approach (ICD-10-PCS; 2019-04-02)
PROC: 02H43JZ Insertion of Pacemaker Lead into Coronary Vein, Percutaneous Approach (ICD-10-PCS; 2019-04-02)
DX: I48.21 Permanent atrial fibrillation (principal); M19.90 Unspecified osteoarthritis, unspecified site; F17.210 Nicotine dependence, cigarettes, uncomplicated; I25.10 Atherosclerotic heart disease of native coronary artery without angina pectoris; I10 Essential (primary) hypertension; Z86.73 Personal history of transient ischemic attack (TIA), and cerebral infarction without residual deficits; Z79.01 Long term (current) use of anticoagulants; Z79.899 Other long term (current) drug therapy
CPT/HCPCS: 33225; 36415; 71045; 80048; 85025; 85610; 85730; 93005; 93010; 96374; 96376; C1882; C1898; G0378; J0690; J1265; J1644; J2001; J2250; J2704; J3010; J3490; Q9967

== ENCOUNTER 2022-03-15 10:18 | Outpatient (CLI) | payer MEDICARE | END 2022-03-15 10:19 | disposition home or self-care (01) | LOC: TBSIIMAG 10:18 | PROVIDERS: ATTEND Surgery | DX: M48.062 Spinal stenosis, lumbar region with neurogenic claudication (principal); M47.816 Spondylosis without myelopathy or radiculopathy, lumbar region; I48.91 Unspecified atrial fibrillation | CPT/HCPCS: 72110 ==

== ENCOUNTER 2024-02-25 14:25 | Emergency (ER) | payer MEDICARE ==
[2024-02-25 15:02] LABS: #Basophils 0.07 10x3/uL (0.0-0.2); %Basophils 0.8 % (0.0-1.0); %Eosinophils 3.1 % (0.0-10.0); %Lymphocytes 35.8 % (21.0-51.0); %Monocytes 8.3 % (0.0-10.0); %Neutrophils 51.8 % (42.0-75.0); Hematocrit 46.7 % (42.0-52.0); Hemoglobin 16.2 g/dL (14.0-18.0); Mean Corpuscular HGB CONC 34.7 g/dL (32.0-36.0); Mean Corpuscular Hemoglobin 32.3 pg (27.0-31.0); Mean Platelet Volume 11.3 fL (7.4-10.4); Platelet Count 178 10x3/uL (130-400); RBC Distribution Width 13.9 % (11.5-14.5); Red Blood Cell (RBC) Count 5.02 mill/uL (4.70-6.10)
[2024-02-25 15:23] LABS: ALT (SGPT) 12 U/L (8-55); AST (SGOT) 12 U/L (5-34); Albumin 3.1 g/dL (3.4-4.8); Alkaline Phosphatase 73 U/L (40-110); Anion Gap 12 mmol/L (10-20); BUN (Urea Nitrogen) 19 mg/dL (8.4-25.7); Bilirubin, Total 0.4 mg/dL (0.2-1.2); Calc. Creatinine Clearance 0 mL/min (70-130); Calcium 9.2 mg/dL (7.8-10.44); Carbon Dioxide 28 mmol/L (23-31); Chloride 106 mmol/L (98-107); Estimated GFR 71; Globulin 3.6 g/dL (2.4-3.5); Glucose 215 mg/dL (83-110); Potassium 4.1 mmol/L (3.5-5.1); Protein, Total 6.7 g/dL (5.8-8.1); Sodium 142 mmol/L (136-145)
== END 2024-02-25 17:00 | disposition home or self-care (01) ==
LOC: ERS 14:25
DX: L03.116 Cellulitis of left lower limb (principal); I10 Essential (primary) hypertension; E11.65 Type 2 diabetes mellitus with hyperglycemia; F17.210 Nicotine dependence, cigarettes, uncomplicated; Z55.6 Problems related to health literacy
CPT/HCPCS: 80053; 83880; 85025

== ENCOUNTER 2024-07-13 18:35 | Emergency (ER) | payer MEDICARE ==
[2024-07-13] MEDS ORDERED: Acetaminophen 325 MG TAB ONE (19:15)
[2024-07-13] MEDS ORDERED: Piperacillin/Tazobactam 4.5 GM VIAL ONE (19:15)
[2024-07-13] MEDS ORDERED: Sodium Chloride 0.9% 100 ML ONE (19:15)
[2024-07-13] MEDS ORDERED: Vancomycin (BATCH) 2.5 GM in Premix 1 BAG IVPB SCH (19:15)
[2024-07-13 20:26] LABS: #Basophils 0.09 10x3/uL (0.0-0.2); %Basophils 0.8 % (0.0-1.0); %Lymphocytes 27.3 % (21.0-51.0); %Monocytes 10.2 % (0.0-10.0); %Neutrophils 58.4 % (42.0-75.0); Hematocrit 47.4 % (42.0-52.0); Hemoglobin 16.1 g/dL (14.0-18.0); Mean Corpuscular Hemoglobin 31.1 pg (27.0-31.0); Mean Corpuscular Volume 91.7 fL (78.0-98.0); Platelet Count 248 10x3/uL (130-400); RBC Distribution Width 13.3 % (11.5-14.5); Red Blood Cell (RBC) Count 5.17 mill/uL (4.70-6.10)
[2024-07-13 20:47] LABS: ALT (SGPT) 8 U/L (Less than 45); AST (SGOT) 17 U/L (11-34); Albumin 3.1 g/dL (3.1-4.5); Alkaline Phosphatase 85 U/L (40-110); Anion Gap 17 mmol/L (10-20); BUN (Urea Nitrogen) 23 mg/dL (8.4-25.7); Bilirubin, Total 0.2 mg/dL (0.3-1.2); Calc. Creatinine Clearance 0 mL/min (70-130); Calcium 9.5 mg/dL (7.8-10.44); Carbon Dioxide 23 mmol/L (23-31); Chloride 104 mmol/L (98-107); Estimated GFR 74; Globulin 4.6 g/dL (2.4-3.5); Glucose 104 mg/dL (83-110); Potassium 4.6 mmol/L (3.5-5.1); Protein, Total 7.7 g/dL (5.8-8.1); Sodium 139 mmol/L (136-145)
[2024-07-13] MEDS ORDERED: cloNIDine 0.1 MG TAB ONE (22:14)
== END 2024-07-14 00:28 | disposition short-term general hospital (02) ==
LOC: ERS 18:35
DX: E11.52 Type 2 diabetes mellitus with diabetic peripheral angiopathy with gangrene (principal); I96 Gangrene, not elsewhere classified; I48.91 Unspecified atrial fibrillation; I10 Essential (primary) hypertension; F17.210 Nicotine dependence, cigarettes, uncomplicated; Z79.01 Long term (current) use of anticoagulants; Z79.899 Other long term (current) drug therapy
CPT/HCPCS: 73630; 80053; 85025; 87040; 87070; 87077; 87186; 87205; J2543; J3370; 36415; 96374; 96375